=== PATIENT | male | born 1965 | race Caucasian/White ===

== ENCOUNTER 2017-03-12 08:34 | Day surgery (SDC) | payer BC ==
[2017-03-12] VITALS (7 sets, daily range): BP systolic 121–140; BP diastolic 76–81; PULSE 63–74; TEMP 36.4–36.8; O2SAT 93–97; Ht 180.3 cm; Wt 99.0 kg
[~2017-03-12] VITALS: Ht 180.3 cm; Wt 99.0 kg
[~2017-03-12 08:34] MED LIST: ASPI-435 PO; CYAN1LOZ2 PO; FEXO3TAB PO; OMEG1CAP81 PO; PRAV20TA PO
[2017-03-12 09:42] LABS: PLATELET COUNT 161 K/uL (130-400)
[2017-03-12 10:12] LABS: PROTHROMBIN TIME (PATIENT) 10.5 SECONDS (9.0-12.0)
--- NOTE | 2017-03-12 11:12 | Discharge Instructions ---
Discharge Instructions Procedure Procedure Date: Mar 12, 2017. Reason for visit: Elevated Ferritin Levels. Discharge Discharge Date: Mar 12, 2017. Discharge Diagnosis: SAME Instructions Activity Recommendations: No limitations Return to School/Work: no limitations Recommended Home Diet: Resume Previous Diet Provider Instructions: ACTIVITY RECOMMENDATIONS: * Rest today. * Resume regular activity in one day. MEDICATIONS: * May take Tylenol or Ibuprofen as needed for pain. DIET: * Resume previous diet. SPECIAL CARE INSTRUCTIONS: Call your doctor if: * Temperature above 101 degrees F. * Pain not relieved by pain medicine ordered. * Increased drainage or redness from incision. * Notify your doctor with any questions or concerns. Call your doctor or go to the nearest Emergency Department if you experience: * Increased chest pain or shortness of breath. FOLLOW UP VISIT: Follow-up with Referring Physician as scheduled. Allergies Coded Allergies: No Known Allergies (Unverified , 03/12/17) Rosina Wilson Recommendations: Call your doctor if: * Temperature above 101 degrees * Pain not relieved by pain medicine ordered * There is increased drainage or redness from any incision * You have any unanswered questions or concerns. Your Doctors Instructions noted above were prepared by provider Omer Tang. Patient Signature Section: Patient Instructions Signature Page Stephen Galdamez Patient (or Guardian) Signature/Date: I have read and understand the instructions given to me by my caregivers. Caregiver/RN/Doctor Signature/Date: The above-named patient and/or guardian has received patient instructions on this date. + Original Patient Signature Page (only) stays with chart. Please make copy for patient.
[2017-03-12] MEDS ORDERED: ACETAMINOPHEN 500 MG TAB PO PRN (11:15)
--- NOTE | 2017-03-12 12:42 | DIAGNOSTIC IMAGING REPORT ---
ULTRASOUND-GUIDED FINE-NEEDLE ASPIRATION THYROID CLINICAL HISTORY: Elevated ferritin levels. COMPARISON STUDY: Ultrasound 12/14/2015. PROCEDURE: The risks, benefits, and alternatives to the procedure were discussed with the patient. Written informed consent was obtained. The patient was placed supine in ultrasound, and left lobe of the liver was localized by ultrasound and selected for core needle aspiration. The upper central anterior abdomen was prepped and draped in the usual sterile fashion. The skin and deep tissues were then anesthetized with 1% lidocaine up to the liver capsule. The left lobe of the liver was then biopsied with a single pass 18-gauge 2 cm core biopsy device under ultrasound guidance. The specimen was reviewed and appeared adequate for diagnosis. Pressure was then applied at the wound site for approximately 2 minutes to achieve hemostasis. The patient tolerated the procedure well and left the department in satisfactory condition. The patient was then transported to same day surgery and observed for 2 hours following the procedure. IMPRESSION: Completed random core needle biopsy of the liver. Pathology pending. The above report was generated using voice recognition software. It may contain grammatical, syntax or spelling errors. Electronically signed by: Festus Tang M.D. 03/12/2017 12:41 PM Dictated Date/Time: 03/12/2017 12:37 PM
== END 2017-03-12 13:10 | disposition home or self-care (01) ==
LOC: C.ACU 08:34
PROVIDERS: ATTEND Nurse Practitioner
DX: K76.0 Fatty (change of) liver, not elsewhere classified (principal)